=== PATIENT | female | born 1975 | race African-American/Black ===

== ENCOUNTER 2020-01-04 14:37 | Emergency (ER) | payer SELFPAY | END 2020-01-04 15:02 | disposition home or self-care (01) | LOC: BURERS 14:37 | DX: I10 Essential (primary) hypertension (principal); F17.210 Nicotine dependence, cigarettes, uncomplicated | CPT/HCPCS: 99281 ==

== ENCOUNTER 2024-02-04 17:25 | Emergency (ER) | payer BC ==
[2024-02-04] MEDS ORDERED: NS 0.9% w/ 20 MEQ KCL 1,000 ML ONE (17:46)
[2024-02-04] MEDS ORDERED: Ondansetron PF 4 MG/2 ML Vial ONE (17:47)
[2024-02-04 18:15] LABS: Hematocrit 43.2 % (36.0-47.0); Hemoglobin 13.8 g/dL (12.0-16.0); Mean Corpuscular HGB CONC 31.9 g/dL (32.0-36.0); Mean Corpuscular Hemoglobin 27.9 pg (27.0-31.0); Mean Corpuscular Volume 87.4 fl (78.0-98.0); Mean Platelet Volume 7.7 fL (7.4-10.4); Platelet Count 346 10x3/uL (130-400); RBC Distribution Width 11.1 % (11.5-14.5); Red Blood Cell (RBC) Count 4.94 mill/uL (4.20-5.40); White Blood Cell (WBC) Count 10.3 10x3/uL (4.8-10.8)
[2024-02-04 18:29] LABS: Troponin I 0.014 ng/mL (< 0.028)
[2024-02-04 18:31] LABS: ALT (SGPT) 17 U/L (8-55); AST (SGOT) 23 U/L (5-34); Alkaline Phosphatase 88 U/L (40-110); Anion Gap 19 mmol/L (10-20); BUN (Urea Nitrogen) 17 mg/dL (7.0-18.7); Bilirubin, Total 0.5 mg/dL (0.2-1.2); CK (CPK) 403 U/L (29-168); Calc. Creatinine Clearance 0 mL/min (70-130); Calcium 9.6 mg/dL (7.8-10.44); Carbon Dioxide 27 mmol/L (22-29); Chloride 92 mmol/L (98-107); Estimated GFR 17; Globulin 3.4 g/dL (2.4-3.5); Glucose 92 mg/dL (70-105); Lipase 38 U/L (8-78); Magnesium 1.9 mg/dL (1.6-2.6); Protein, Total 7.4 g/dL (6.0-8.3); Sodium 136 mmol/L (136-145)
[2024-02-04 18:32] LABS: Acetaminophen Less than 10 mcg/mL (Less than 10); Alcohol Less than 10.0 mg/dL (Less than 10); Critical Call Chemistry ers.cma@1821; Potassium 2.2 mmol/L (3.5-5.1); Salicylate Less than 8.0 mg/dL (Less than 8.0)
[2024-02-04] MEDS ORDERED: Cefepime 2 GM VIAL ONE (18:42)
[2024-02-04] MEDS ORDERED: Sodium Chloride 0.9% 100 ML ONE (18:42)
[2024-02-04] MEDS ORDERED: Potassium Chloride 20 MEQ TAB ONE ×2 (18:42→18:45)
[2024-02-04 18:52] LABS: Band 1 % (5-11); Lymphocytes 28 % (21-51); MDiff Complete? YES; Monocytes 11 % (0-10); Neutrophil 60 % (42-75); Platelet Adequacy Comment Appears Adequate
[2024-02-04] MEDS ORDERED: Promethazine HCl 25 MG/ML VIAL ONE (18:55)
[2024-02-04 20:14] LABS: Bilirubin Negative (Negative); Blood, Urine Small (Negative); Clarity Cloudy (Clear); Glucose, Urine (Dipstick) Negative (Negative); Ketone, Urine Negative (Negative); Leukocyte Negative (Negative); Nitrite Negative (Negative); Protein, Urine (Dipstick) 30 mg/dL (Neg-Trace); Specific Gravity, Urine 1.015 (1.005-1.030); Urobilinogen 0.2 mg/dL (Less than 2); pH, Urine 5.5 (5.0-9.0)
[2024-02-04 20:22] LABS: CAUTI Indications for Culture Alt mental st,lethar; RBC/HPF 0-3 HPF (0-3)
[2024-02-04 20:23] LABS: Bacteria/HPF 1+ HPF (None Seen); Urine Culture Reflex No No
[2024-02-04 20:25] LABS: Amphetamine Detected (NotDetected); Barbiturates Screen Not Detected (NotDetected); Benzodiazepine Screen Not Detected (NotDetected); Cocaine Metabolite Screen Not Detected (NotDetected); Methadone Not Detected (NotDetected); Methamphetamine Detected (NotDetected); Opiate Screen Not Detected (NotDetected); Oxycodone Screen Not Detected (NotDetected); Phencyclidine (PCP) Not Detected (NotDetected); THC/Cannabinoid Screen Not Detected (NotDetected); Tricyclic Screen Not Detected (NotDetected)
[2024-02-06 11:40] LABS: Base Excess-Venous 8.6 mmol/L (-2.0 to 3.0); Bicarbonate (HCO3v) 31.3 mmol/L (22.0-28.0); CO2 Tension (PvCO2) 35.7 mmHg (42.0-51.0); Hemoglobin - Calc 14.8 g/dL (12.0-16.0); Potassium 2.2 mmol/L (3.5-5.1); Sodium 136 mmol/L (138-145); vO2 Saturation-calc 99.3 % (60.0-85.0)
[2024-02-06 11:41] LABS: Calcium, Ionized 1.02 mmol/L (1.15-1.33); Chloride 91 mmol/L (98-107); T. Carbon Dioxide 32.4 mmol/L (22.0-28.0)
== END 2024-02-04 21:57 | disposition short-term general hospital (02) ==
LOC: BURERS 17:25
DX: E87.6 Hypokalemia (principal); N17.9 Acute kidney failure, unspecified; R11.2 Nausea with vomiting, unspecified; I10 Essential (primary) hypertension; F17.210 Nicotine dependence, cigarettes, uncomplicated
CPT/HCPCS: 36415; 80053; 80306; 80307; 81001; 82330; 82435; 82550; 82803; 83605; 83690; 83735; 84132; 84295; 84484; 85014; 85025; 87040; 87086; 93005; 96361; 96374; 96375; J0692; J2405; J2550; J3480